=== PATIENT | female | born 1950 | race Caucasian/White ===

== ENCOUNTER → 2023-12-12 07:50 | Outpatient (REF) | payer MEDICARE, OTHER, SELFPAY | LOC: RAD 07:50 | PROVIDERS: ATTENDING PHYSICIAN Specialist; FAMILY PHYSICIAN Internal Medicine | DX: E83.110 Hereditary hemochromatosis (principal) | CPT/HCPCS: 76700 ==

== ENCOUNTER 2024-01-05 13:53 | Outpatient (RCR) | payer MEDICARE, OTHER, SELFPAY ==
[2024-01-05] MEDS: NSS 500 IV (14:25)
[2024-01-05] MEDS: ATIVAN 1 MG IV (14:26)
[2024-01-05] MEDS: ATIVAN 1 ML IV (14:26)
[2024-01-05 14:35] VITALS: BP 115/59
[2024-01-05 15:10] VITALS: BP 102/42
[2024-01-05 15:27] VITALS: BP 97/53
[2024-01-05 15:37] VITALS: BP 108/57
[2024-01-05 15:39] VITALS: BP 109/59
== END 2024-01-22 23:59 | disposition home or self-care (01) ==
LOC: OID 13:53
PROVIDERS: ATTENDING PHYSICIAN Specialist; FAMILY PHYSICIAN Internal Medicine
DX: E83.110 Hereditary hemochromatosis (principal)
CPT/HCPCS: 96361; 96374; 99195

== ENCOUNTER → 2024-05-15 14:20 | Outpatient (REF) | payer MEDICARE, OTHER, SELFPAY ==
[2024-05-15 15:39] LABS: % Basophils 0.7 % (0-2); % Eosinophils 5.8 % (0-6); % Immature Granulocytes 0.3 % (0-0.5); % Lymphocytes 19.9 % (20.5-51.1); % Monocytes 11.5 % (1.7-9.3); % Neutrophils 61.8 % (42.2-75.2); Absolute Basophils 0.1 10^3/uL (0-0.2); Absolute Eosinophils 0.4 10^3/uL (0-0.7); Absolute Lymphocytes 1.5 10^3/uL (1.2-3.4); Absolute Monocytes 0.8 10^3/uL (0.1-0.6); Absolute Neutrophils 4.5 10^3/uL (1.4-6.5); Hematocrit 43.2 % (37.0-47.0); Hemoglobin 15.1 g/dL (12.0-16.0); Mean Corpuscular Hgb 30.9 pg (27.0-31.0); Mean Corpuscular Volume 88.3 fL (81.0-99.0); Mean Platelet Volume 10.1 fL (7.4-10.4); Nucleated Red Blood Cells % 0 %; Platelet Count 201 10^3/uL (130-400); Red Blood Cell Count 4.89 10^6/uL (4.20-5.40); Red Cell Dist. Width 12.4 % (11.5-14.5); White Blood Cell Count 7.3 10^3/uL (4.8-10.8)
[2024-05-15 16:10] LABS: ALT (SGPT) 51 U/L (0-35); AST (SGOT) 45 U/L (14-36); Albumin 4.7 g/dl (3.5-5.0); Alkaline Phosphatase 59 U/L (38-126); Direct Bilirubin 0.2 mg/dl (0.0-0.4); Iron 220 ug/dl (37-170); Total Bilirubin 0.9 mg/dl (0.2-1.3)
[2024-05-15 16:21] LABS: Percent Saturation 71 % (20-50); Total Iron Binding Capacity 306 ug/dl (265-497)
== END ==
LOC: REG 14:20
PROVIDERS: ATTENDING PHYSICIAN Specialist; FAMILY PHYSICIAN Internal Medicine
DX: E83.110 Hereditary hemochromatosis (principal)
CPT/HCPCS: 36415; 80076; 82728; 83540; 83550; 85025

== ENCOUNTER 2024-05-25 13:02 | Outpatient (RCR) | payer MEDICARE, OTHER, SELFPAY ==
[2024-05-25 13:15] VITALS: BP 118/67
[2024-05-25] MEDS: NSS 500 IV (13:30)
[2024-05-25] MEDS: ATIVAN 1 MG IV (13:45)
[2024-05-25] MEDS: ATIVAN 1 ML IV (13:45)
[2024-05-25 14:46] VITALS: BP 104/58
[2024-05-25 15:11] VITALS: BP 109/51
[2024-05-25 15:16] VITALS: BP 99/49
[2024-05-25 15:25] VITALS: BP 104/69
== END 2024-06-23 23:59 | disposition home or self-care (01) ==
LOC: OID 13:02
PROVIDERS: ATTENDING PHYSICIAN Specialist; FAMILY PHYSICIAN Internal Medicine
DX: E83.110 Hereditary hemochromatosis (principal)
CPT/HCPCS: 96360; 96361; 96374; 99195

== ENCOUNTER → 2024-11-27 12:25 | Outpatient (REF) | payer MEDICARE, OTHER, SELFPAY ==
[2024-11-27 16:51] LABS: ALT (SGPT) 39 U/L (0-35); AST (SGOT) 34 U/L (14-36); Albumin 5.3 g/dl (3.5-5.0); Alkaline Phosphatase 82 U/L (38-126); Direct Bilirubin 0.4 mg/dl (0.0-0.4); Iron 166 ug/dl (37-170); Total Bilirubin 0.8 mg/dl (0.2-1.3); Total Protein 7.9 g/dl (6.3-8.2)
[2024-11-27 17:00] LABS: Percent Saturation 55 % (20-50); Total Iron Binding Capacity 299 ug/dl (265-497)
[2024-11-27 17:16] LABS: % Basophils 0.7 % (0-2); % Eosinophils 4.9 % (0-6); % Immature Granulocytes 0.2 % (0-0.5); % Lymphocytes 20.7 % (20.5-51.1); % Monocytes 6.9 % (1.7-9.3); % Neutrophils 66.6 % (42.2-75.2); Absolute Basophils 0.1 10^3/uL (0-0.2); Absolute Eosinophils 0.4 10^3/uL (0-0.7); Absolute Lymphocytes 1.8 10^3/uL (1.2-3.4); Absolute Monocytes 0.6 10^3/uL (0.1-0.6); Absolute Neutrophils 5.8 10^3/uL (1.4-6.5); Hematocrit 40.5 % (37.0-47.0); Hemoglobin 13.9 g/dL (12.0-16.0); Mean Corp Hgb Conc. 34.3 g/dL (33.0-37.0); Mean Corpuscular Hgb 30.5 pg (27.0-31.0); Mean Corpuscular Volume 88.8 fL (81.0-99.0); Mean Platelet Volume 10.2 fL (7.4-10.4); Nucleated Red Blood Cells % 0 %; Platelet Count 243 10^3/uL (130-400); Red Blood Cell Count 4.56 10^6/uL (4.20-5.40); Red Cell Dist. Width 12.7 % (11.5-14.5); White Blood Cell Count 8.8 10^3/uL (4.8-10.8)
== END ==
LOC: REG 12:25
PROVIDERS: ATTENDING PHYSICIAN Specialist; FAMILY PHYSICIAN Internal Medicine
DX: E83.110 Hereditary hemochromatosis (principal)
CPT/HCPCS: 36415; 80076; 82728; 83540; 83550; 85025

== ENCOUNTER 2025-01-08 13:05 | Outpatient (RCR) | payer MEDICARE, OTHER, SELFPAY ==
[2025-01-08] MEDS: NSS 500 IV (13:36)
[2025-01-08 13:39] VITALS: BP 113/58
[2025-01-08] MEDS: ATIVAN 1 ML IV (13:47)
[2025-01-08] MEDS: ATIVAN 1 MG IV (13:47)
[2025-01-08 14:15] VITALS: BP 98/35
[2025-01-08 14:18] VITALS: BP 130/56
[2025-01-08 14:40] VITALS: BP 100/53
[2025-01-08 14:43] VITALS: BP 116/51
[2025-01-08 14:47] VITALS: BP 113/41
== END 2025-01-21 23:59 | disposition home or self-care (01) ==
LOC: OID 13:05
PROVIDERS: ATTENDING PHYSICIAN Specialist; FAMILY PHYSICIAN Internal Medicine
DX: E83.110 Hereditary hemochromatosis (principal)
CPT/HCPCS: 96361; 96365; 96374; 99195

== ENCOUNTER → 2025-02-26 13:04 | Outpatient (REF) | payer MEDICARE, OTHER, SELFPAY | LOC: WDC 13:04 | PROVIDERS: ATTENDING PHYSICIAN Internal Medicine | DX: Z12.39 Encounter for other screening for malignant neoplasm of breast (principal); Z12.31 Encounter for screening mammogram for malignant neoplasm of breast | CPT/HCPCS: 77063; 77067 ==

== ENCOUNTER → 2025-04-23 09:02 | Outpatient (REF) | payer MEDICARE, OTHER, SELFPAY ==
[2025-04-23 10:00] LABS: Hematocrit 40.6 % (37.0-47.0); Hemoglobin 14.0 g/dL (12.0-16.0); Mean Corp Hgb Conc. 34.5 g/dL (33.0-37.0); Mean Corpuscular Volume 88.8 fL (81.0-99.0); Platelet Count 195 10^3/uL (130-400); Red Cell Dist. Width 12.5 % (11.5-14.5)
[2025-04-23 10:38] LABS: ALT (SGPT) 26 U/L (0-35); AST (SGOT) 25 U/L (14-36); Albumin 4.7 g/dl (3.5-5.0); Alkaline Phosphatase 60 U/L (38-126); Iron 178 ug/dl (37-170); Total Protein 6.9 g/dl (6.3-8.2)
[2025-04-23 10:47] LABS: Total Iron Binding Capacity 295 ug/dl (265-497)
[2025-04-23 11:06] LABS: Ferritin 58.3 ng/ml (11.1-264.0)
[2025-04-23 11:12] LABS: AFP Male/Tumor Marker 4.03 ng/ml
== END ==
LOC: REG 09:02
PROVIDERS: ATTENDING PHYSICIAN Specialist; FAMILY PHYSICIAN Internal Medicine
DX: E83.110 Hereditary hemochromatosis (principal)
CPT/HCPCS: 36415; 80076; 82105; 82728; 83540; 83550; 85027

== ENCOUNTER → 2025-08-07 09:30 | Outpatient (REF) | payer MEDICARE, OTHER, SELFPAY ==
[2025-08-07 10:23] LABS: Urine Character Clear (Clear)
[2025-08-07 10:25] LABS: Hematocrit 42.7 % (37.0-47.0); Hemoglobin 14.7 g/dL (12.0-16.0); Mean Corp Hgb Conc. 34.4 g/dL (33.0-37.0); Mean Corpuscular Volume 90.3 fL (81.0-99.0); Nucleated Red Blood Cells % 0 %; Platelet Count 205 10^3/uL (130-400); Red Cell Dist. Width 12.3 % (11.5-14.5)
[2025-08-07 11:03] LABS: Vitamin D, 25-OH*** 42.0 ng/mL (30-80)
[2025-08-07 11:17] LABS: TSH 1.39 uIU/ml (0.47-4.68)
[2025-08-07 11:21] LABS: Ferritin 111.0 ng/ml (11.1-264.0)
[2025-08-07 13:35] LABS: ALT (SGPT) 34 U/L (0-35); AST (SGOT) 30 U/L (14-36); Albumin 4.6 g/dl (3.5-5.0); Alkaline Phosphatase 48 U/L (38-126); Blood Urea Nitrogen 16 mg/dl (7-17); Calcium 9.3 mg/dl (8.4-10.2); Carbon Dioxide 25 mmol/L (22-30); Chloride 102 mmol/L (98-107); Glucose 87 mg/dl (70-99); HDL Cholesterol 62 mg/dl; Iron 236 ug/dl (37-170); LDL Cholesterol, Calculated 86 mg/dl; Potassium 4.6 mmol/L (3.5-5.1); Sodium 135 mmol/L (135-145); Total Protein 6.9 g/dl (6.3-8.2); Very Low Density Lipoprotein 17 mg/dl (0-30); eGFR > 60.00
[2025-08-07 13:44] LABS: Total Iron Binding Capacity 296 ug/dl (265-497)
== END ==
LOC: REG 09:30
PROVIDERS: ATTENDING PHYSICIAN Specialist; FAMILY PHYSICIAN Internal Medicine
DX: E83.110 Hereditary hemochromatosis (principal); Z00.00 Encounter for general adult medical examination without abnormal findings; E78.2 Mixed hyperlipidemia; I10 Essential (primary) hypertension; Z79.899 Other long term (current) drug therapy; D51.9 Vitamin B12 deficiency anemia, unspecified
CPT/HCPCS: 36415; 80053; 80061; 81003; 82306; 82728; 83540; 83550; 84443; 85025

== ENCOUNTER 2025-08-16 09:49 | Outpatient (RCR) | payer MEDICARE, OTHER, SELFPAY ==
[2025-08-16 10:10] VITALS: BP 115/74
[2025-08-16] MEDS: ATIVAN 1 MG PO (10:17)
[2025-08-16] MEDS: NSS 500 IV (10:25)
[2025-08-16 11:25] VITALS: BP 122/66
[2025-08-16 11:33] VITALS: BP 111/69
== END 2025-08-23 23:59 | disposition home or self-care (01) ==
LOC: OID 09:49
PROVIDERS: ATTENDING PHYSICIAN Specialist; FAMILY PHYSICIAN Internal Medicine
DX: E83.110 Hereditary hemochromatosis (principal); Z80.0 Family history of malignant neoplasm of digestive organs
CPT/HCPCS: 96360; 99195